=== PATIENT | female | born 1980 | race American Indian/Alaskan Native ===

== ENCOUNTER 2021-01-24 08:14 | Emergency (ER) | payer SELFPAY ==
--- NOTE | 2021-01-24 08:34 | Emergency Department Report ---
ED General Adult HPI - General Chief complaint: High BP Stated complaint: BP Time Seen by Provider: 01/24/21 08:21 Source: patient, family Mode of arrival: Ambulatory Limitations: No Limitations - History of Present Illness Initial comments: 40-year-old female with a past medical history of hypertension presents to the ER today requesting a blood pressure check. Patient states that she moved here from [facility] back in September. She was diagnosed with hypertension back in [place] but she was never on any blood pressure medication. Since she is moved here she is not established with a primary care doctor. She states that she is not having any symptoms currently she just wanted to have a blood pressure check. Patient blood pressure at time of triage was noted to be initially 199/130, repeat on the left arm was 205/126 and her heart rate was 143. Patient again denied any symptoms of chest pain, shortness of breath, headache, leg pain or swelling, focal weakness, dizziness, or any symptoms. MD Complaint: Blood pressure check -: Gradual Severity scale (0 -10): 0 - Related Data Previous Rx's Medication Instructions Recorded Last Taken Type Amlodipine Besylate [Norvasc] 10 mg PO DAILY #30 tablet 01/24/21 Unknown Rx Allergies Allergy/AdvReac Type Severity Reaction Status Date / Time No Known Allergies Allergy Unverified 01/24/21 08:17 ED Review of Systems ROS: Stated complaint: BP Other details as noted in HPI Comment: All other systems reviewed and negative Constitutional: denies: chills, fever Eyes: denies: eye pain, eye discharge, vision change ENT: denies: ear pain, throat pain Respiratory: denies: cough, shortness of breath, wheezing Cardiovascular: denies: chest pain, palpitations Gastrointestinal: denies: abdominal pain, nausea, diarrhea Musculoskeletal: denies: back pain, joint swelling, arthralgia Skin: denies: rash, lesions Neurological: denies: headache, weakness, paresthesias Psychiatric: denies: anxiety, depression Hematological/Lymphatic: denies: easy bleeding, easy bruising ED Past Medical Hx - Past Medical History Previous Medical History?: Yes Hx Hypertension: Yes (no meds) - Surgical History Past Surgical History?: No - Social History Smoking Status: Never Smoker Substance Use Type: None - Medications Home Medications: Home Medications Medication Instructions Recorded Confirmed Last Taken Type Amlodipine Besylate [Norvasc] 10 mg PO DAILY #30 tablet 01/24/21 Unknown Rx ED Physical Exam - General Limitations: No Limitations General appearance: alert, in no apparent distress - Head Head exam: Present: atraumatic, normocephalic, normal inspection - Eye Eye exam: Present: normal appearance, PERRL, EOMI Pupils: Present: normal accommodation - ENT ENT exam: Present: normal exam, mucous membranes moist - Neck Neck exam: Present: normal inspection - Respiratory Respiratory exam: Absent: normal lung sounds bilaterally - Cardiovascular Cardiovascular Exam: Present: normal rhythm, tachycardia, normal heart sounds - GI/Abdominal GI/Abdominal exam: Present: soft. Absent: distended, tenderness - Extremities Exam Extremities exam: Present: normal inspection. Absent: pedal edema, calf tenderness - Back Exam Back exam: Present: normal inspection - Neurological Exam Neurological exam: Present: alert, oriented X3, CN II-XII intact, normal gait - Psychiatric Psychiatric exam: Present: normal affect, normal mood - Skin Skin exam: Present: intact ED Course Vital Signs 01/24/21 01/24/21 01/24/21 08:17 08:23 09:32 Temperature 99 F 99 F Pulse Rate 149 H 143 H 92 H Respiratory 20 20 Rate Blood Pressure 199/130 186/106 Blood Pressure 205/126 [Left] O2 Sat by Pulse 100 100 Oximetry 01/24/21 01/24/21 01/24/21 09:38 09:46 10:00 Temperature Pulse Rate 83 72 73 Respiratory 15 13 12 Rate Blood Pressure 162/109 156/105 Blood Pressure [Left] O2 Sat by Pulse 100 100 100 Oximetry 01/24/21 01/24/21 01/24/21 10:16 10:30 10:34 Temperature Pulse Rate 73 77 77 Respiratory 12 15 15 Rate Blood Pressure 154/109 161/116 Blood Pressure 161/116 [Left] O2 Sat by Pulse 100 100 100 Oximetry 01/24/21 01/24/21 01/24/21 10:46 11:00 11:16 Temperature Pulse Rate 66 72 82 Respiratory 13 Rate Blood Pressure 177/114 183/109 182/115 Blood Pressure [Left] O2 Sat by Pulse 100 100 100 Oximetry 01/24/21 01/24/21 01/24/21 11:30 11:46 12:00 Temperature Pulse Rate 74 105 H 90 Respiratory 14 16 18 Rate Blood Pressure 186/106 178/111 185/117 Blood Pressure [Left] O2 Sat by Pulse 100 100 100 Oximetry 01/24/21 01/24/21 01/24/21 12:16 12:30 12:45 Temperature Pulse Rate 97 H 73 Respiratory 24 14 Rate Blood Pressure 195/112 161/116 183/109 Blood Pressure [Left] O2 Sat by Pulse 100 100 99 Oximetry 01/24/21 13:03 Temperature Pulse Rate 98 H Respiratory 15 Rate Blood Pressure 162/105 Blood Pressure [Left] O2 Sat by Pulse 100 Oximetry ED Medical Decision Making - Lab Data Result diagrams: 01/24/21 08:55 01/24/21 08:55 - EKG Data Rate: tachycardia (127) - EKG Data 01/24/21 08:35 Sinus tach at 127; no MT or other acute ischemic changes - Radiology Data Radiology results: report reviewed 40-year-old female with a past medical history of hypertension presents to the ER today requesting a blood pressure check. Patient states that she moved here from [facility] back in September. She was diagnosed with hypertension back in [place] but she was never on any blood pressure medication. Since she is moved here she is not established with a primary care doctor. She states that she is not having any symptoms currently she just wanted to have a blood pressure check. Patient blood pressure at time of triage was noted to be initially 199/130, repeat on the left arm was 205/126 and her heart rate was 143. Patient again denied any symptoms of chest pain, shortness of breath, headache, leg pain or swelling, focal weakness, dizziness, or any symptoms. Given abnormal vital signs, discussed case with Dr. Arana, and recommend doing a cardiac work-up and and giving patient IV dose of labetalol. 1326: Patient blood pressure - Medical Decision Making 40-year-old female with a past medical history of hypertension presents to the ER today requesting a blood pressure check. Patient states that she moved here from [facility] back in September. She was diagnosed with hypertension back in [place] but she was never on any blood pressure medication. Since she is moved here she is not established with a primary care doctor. She states that she is not having any symptoms currently she just wanted to have a blood pressure check. Patient blood pressure at time of triage was noted to be initially 199/130, repeat on the left arm was 205/126 and her heart rate was 143. Patient again denied any symptoms of chest pain, shortness of breath, headache, leg pain or swelling, focal weakness, dizziness, or any symptoms. Given patient abnormal vital signs, I did discuss case with Dr. Herb Tian and he recommends doing a basic cardiac work-up and given the patient a dose of labetalol. EKG shows sinus tach with a heart rate of 127 but otherwise no STEM I, or acute ischemic changes or other significant dysrhythmia. Patient labs reviewed, troponin was normal, kidney function was normal, CBC unremarkable, cmp show very mild hyponatremia and very mild but otherwise unremarkable and her TSH was normal. After labetalol 20 mg patient blood pressure was still elevated 182/111. Discussed results and blood pressure reading with Dr. Herb Tian, recommend giving hydralazine and repeating the blood pressure. Re-evaluated patient. Discussed results and tx plan with her. She again denies any symptoms. She is currently awake alert and oriented x3 and anthony rologically intact, and in no distress. She is not toxic or ill-appearing. 1331: Patient BP has improved, its now 162/105. Discussed with Dr Arana. Patient will be d/c home with rx to start on norvasc. No additional intervention needed in ED a this time. No indication for admission, transfer or emergent consult. Discussed treatment plan with patient. She will be given referral to local [facility] doctor for follow-up. She expressed understanding of instructions and agree with plan. Critical care attestation.: If time is entered above; I have spent that time in minutes in the direct care of this critically ill patient, excluding procedure time. ED Disposition Clinical Impression: Uncontrolled hypertension Disposition: DC-01 TO HOME OR SELFCARE Is pt being admited?: No Does the pt Need Aspirin: No Condition: Stable Instructions: Hypertension, Adult, Hypertension (ED) Additional Instructions: Start the Norvasc and take as prescribed. It is important that you establish with a primary care doctor in follow-up to continue monitoring your blood pressure. Return to the ER if you develop any symptoms related to your blood pressure such has chest pain, shortness of breath, focal weakness, vision changes, altered mental status, speech changes Prescriptions: Amlodipine Besylate [Norvasc] 10 mg PO DAILY #30 tablet Referrals: DELIA NOYOLA MD [Primary Care Provider] - 3-5 Days JADYN RAMIREZ MD [Staff Physician] - 3-5 Days Time of Disposition: 13:35
--- NOTE | 2021-01-24 09:51 | XRay Report ---
CHEST PA AND LATERAL VIEWS INDICATION: elevated BP/Sinus Tachy. COMPARISON: None. FINDINGS: Support devices: None. Heart: Within normal limits. Lungs/Pleura: No acute pulmonary or pleural findings. IMPRESSION: 1. No acute findings. Signer Name: Remberto Keith MD Signed: 01/24/2021 9:46 AM Workstation Name: [id number]
[2021-01-24 09:52] LABS: Hematocrit 37.8 % (30.3-42.9); Hemoglobin 12.7 gm/dl (10.1-14.3); Mean Corpuscular HGB Conc 34 % (30-34); Mean Corpuscular Volume 85 fl (79-97); Platelet Count 288 K/mm3 (140-440); Red Blood Count 4.48 M/mm3 (3.65-5.03); Red Cell Distribution Width 13.7 % (13.2-15.2)
[2021-01-24 10:01] LABS: Alanine Aminotransferase 21 units/L (7-56); Albumin 3.9 g/dL (3.9-5); BUN/Creatinine Ratio 9; Blood Urea Nitrogen 7 mg/dL (7-17); Calcium 8.5 mg/dL (8.4-10.2); Hemolysis Index 4
[2021-01-24] MEDS ORDERED: hydrALAZINE 20 MG/1 ML INJ IV ONE (11:04)
[2021-01-24 11:40] LABS: Total Cells Counted 100
[2021-01-24 11:41] LABS: Platelet Estimate Consistent w Auto; RBC Morphology Normal
[2021-01-24 12:04] LABS: Amphetamine Screen,Urine Negative; Benzodiazepines Screen,Urine Negative; Cannabinoid Screen,Urine Negative; Cocaine Screen,Urine Negative; Methadone Screen,Urine Negative; Opiate Screen,Urine Negative
[2021-01-24 12:20] LABS: Bacteria,Urine 1+ /HPF (Negative); Bilirubin,Urine NEG (Negative); Blood,Urine NEG (Negative); Color,Urine Straw (Yellow); Protein,Urine <15 mg/dL mg/dL (Negative); Urobilinogen,Urine < 2.0 mg/dL (<2.0); WBC,Urine < 1.0 /HPF (0.0-6.0)
[2021-01-24 13:38] VITALS: BP 162/105
== END 2021-01-24 14:23 | disposition home or self-care (01) ==
LOC: ED 08:14
DX: I10 Essential (primary) hypertension (principal); Z79.899 Other long term (current) drug therapy
CPT/HCPCS: 36415; 71046; 80053; 80307; 81001; 84443; 84484; 85007; 85025; 93005; 96374; 96375; 99284; J0360